=== PATIENT | female | born 1985 | race African-American/Black ===

== ENCOUNTER 2021-05-22 14:20 | Emergency (ER) | payer OTHER ==
[~2021-05-22] VITALS: Ht 172.7 cm; Wt 79.3 kg
[2021-05-22] MEDS ORDERED: ACET-1379 PO (14:30)
[2021-05-22] MEDS ORDERED: LIDOCAINE VISCOUS 2% SOLN 15ML UDC MT ONE (14:40)
[2021-05-22] MEDS ORDERED: KETOROLAC 30 MG/ML 1ML VIAL IM ONE (14:40)
[2021-05-22] MEDS ORDERED: AMOXICILLIN 500 MG CAP PO ONE (14:40)
[2021-05-22] MEDS ORDERED: AMOX500C PO ×2 (14:50→15:59)
[2021-05-22] MEDS ORDERED: MAGICMW SSP ×2 (14:50→15:59)
[2021-05-22] MEDS ORDERED: KETO10TAB PO ×2 (14:50→15:59)
[2021-05-22 15:36] VITALS: BP 147/61
== END 2021-05-22 15:37 | disposition home or self-care (01) ==
LOC: M ED 14:20
DX: K08.89 Other specified disorders of teeth and supporting structures (principal); K02.9 Dental caries, unspecified
CPT/HCPCS: 96372; 99284; J1885

== ENCOUNTER 2022-08-17 15:50 | Emergency (ER) | payer OTHER ==
[~2022-08-17] VITALS: Ht 165.1 cm; Wt 74.4 kg
[~2022-08-17 15:50] MED LIST: ACET-1379 PO; AMOX500C PO; KETO10TAB PO; MAGICMW SSP
[2022-08-17 16:59] VITALS: BP 172/77
[2022-08-17 17:36] LABS: BASO % 0.3 % (0.0-1.0); EOS % 1.3 % (0.0-3.0); HEMATOCRIT 26.4 % (36.0-47.0); HEMOGLOBIN 7.9 g/dl (12.0-15.5); LYMPH # 1.2 10^3/uL (1.5-5.0); LYMPH % 37.7 % (24.0-44.0); MEAN CORPUSCULAR HEMOGLOBIN 14.6 pg (27.0-33.0); MEAN CORPUSCULAR HGB CONC 29.9 g/dl (32.0-36.5); MEAN CORPUSCULAR VOLUME 48.9 fl (80.0-96.0); MONO # 0.6 10^3/uL (0.0-0.8); MONO % 17.4 % (2.0-8.0); NEUTROPHILS # 1.4 10^3/uL (1.5-8.5); NEUTROPHILS % 42.7 % (36.0-66.0); PLATELET COUNT, AUTOMATED 191 10^3/uL (150-450); WHITE BLOOD COUNT 3.2 10^3/uL (4.0-10.0)
[2022-08-17 17:39] LABS: BLOOD UREA NITROGEN 9 MG/DL (9-23); CALCIUM LEVEL 8.6 MG/DL (8.5-10.1); CARBON DIOXIDE LEVEL 27 MMOL/L (20-31); CHLORIDE LEVEL 107 MMOL/L (98-107); CREATININE FOR GFR 0.29 MG/DL (0.55-1.30); GLOMERULAR FILTRATION RATE > 60.0 (>60); GLUCOSE, FASTING 90 MG/DL (60-100); POTASSIUM SERUM 4.1 MMOL/L (3.5-5.1); SODIUM LEVEL 140 MMOL/L (136-145)
[2022-08-17 17:44] LABS: HCG, SERUM QUALITATIVE NEGATIVE (NEGATIVE)
[2022-08-17 18:00] LABS: PLATELET ESTIMATE NORMAL (NORMAL)
[2022-08-17 18:01] LABS: HYPOCHROMASIA 2+; MICROCYTOSIS 4+; TARGET CELLS 1+
[2022-08-17 18:02] LABS: SCHISTOCYTES 1+
[2022-08-17 18:50] LABS: IRON (FE) 14 UG/DL (50-170); PERCENT SATURATION 3.9 % (13.2-45.0); TOTAL IRON BINDING CAPACITY 360 UG/DL (250-425)
[2022-08-17 18:52] LABS: FERRITIN 7.8 NG/ML (7.3-270.7)
[2022-08-17 18:53] LABS: VITAMIN B12 LEVEL 581 PG/ML (211-911)
[2022-08-17] MEDS ORDERED: FERR325T3 PO (18:54)
== END 2022-08-17 19:13 | disposition home or self-care (01) ==
LOC: M ED 15:50
DX: D50.9 Iron deficiency anemia, unspecified (principal); Z79.899 Other long term (current) drug therapy